=== PATIENT | male | born 1940 | race African-American/Black ===

== ENCOUNTER 2024-04-19 09:28 | Emergency (ER) | payer OTHER ==
[~2024-04-19] VITALS: Ht 180.3 cm; Wt 78.0 kg
[2024-04-19 09:30] VITALS: O2SAT 96
[2024-04-19 10:21] LABS: CHLORIDE 103 mEq/L (98-107); POTASSIUM 3.3 mEq/L (3.5-5.1); SODIUM 137 mEq/L (136-145)
[2024-04-19 10:22] LABS: CALCIUM 8.9 mg/dL (8.7-10.4); CARBON DIOXIDE 22 mEq/L (21-32)
[2024-04-19 10:23] LABS: HEMATOCRIT. 38.8 % (42.0-52.0); HEMOGLOBIN. 12.7 g/dL (14.0-18.0); MEAN CORPUSCULAR HEMOGLOBIN 29.6 pg (28.0-32.0); MEAN CORPUSCULAR HGB CONC 32.8 g/dL (31.0-37.0); MEAN CORPUSCULAR VOLUME 90.3 fL (80.0-94.0); MEAN PLATELET VOLUME 7.8 fl (7.4-10.4); PLATELET 188 x1000/uL (130-400); RED CELL DISTRIBUTION WIDTH 16.2 % (11.6-14.6); WHITE BLOOD COUNT 7.3 x1000/uL (4.5-11.0)
[2024-04-19 10:27] LABS: CREATININE 2.5 mg/dL (0.6-1.3); DIFFERENTIAL COMMENT 1; GLUCOSE 165 mg/dL (70-105); UREA NITROGEN BLOOD 36 mg/dL (9-23)
[2024-04-19 10:45] LABS: TROPONIN I HIGH SENSITIVITY 27 ng/L (3.0-53)
[2024-04-19 10:46] LABS: ETHANOL BLOOD < 10 mg/dL (<10)
[2024-04-19 10:57] LABS: ANISOCYTOSIS 1+; NUCLEATED RED BLOOD CELLS 1 /100 WBC; PLATELET ESTIMATE NORMAL
[2024-04-19 14:47] VITALS: BP 144/59; PULSE 60; RESP 16; TEMP 36.66960; O2SAT 100
== END 2024-04-19 14:59 | disposition left against medical advice (07) ==
LOC: ER 09:28 → EDBD 09:28 → EDBEDREQ 11:55 → EDBEDREQTM 11:55 → EDBEDREQSVC 11:55 → CANBEDREQ 14:30 → ER 14:59
DX: R42 Dizziness and giddiness (principal); I50.9 Heart failure, unspecified
CPT/HCPCS: 36415; 71045; 80048; 80320; 83880; 84484; 85025; 93005; 99285; G0480